=== PATIENT | female | born 1945 | race Caucasian/White ===

== ENCOUNTER 2022-12-07 09:46 | Outpatient (CLI) | payer MEDICARE, SELFPAY ==
--- NOTE | 2022-12-07 10:00 | ECG_ITS ---
Measurements Intervals [place] Rate: 75 P: 66 OH: 188 QRS: 26 QRSD: 97 T: 58 QT: 343 QTc: 385 Interpretive Statements SINUS RHYTHM WITH OCCASIONAL VENTRICULAR PREMATURE COMPLEXES LEFT VENTRICULAR HYPERTROPHY AND ST-T CHANGE [VOLTAGE CRITERIA PLUS ST/T ABNORMALITY] CONSIDER ANTERIOR ISCHEMIA ABNORMAL ECG NO PREVIOUS ECG AVAILABLE FOR COMPARISON Electronically Signed On 12-07-2022 15:29:51 [employer]RARIAN by Az Man M.D.
== END 2022-12-07 09:47 | disposition home or self-care (01) ==
LOC: ANHSURGERY 09:55
PROVIDERS: Anesthesiology; PCP Internal Medicine Geriatric Medicine; Visit Provider Urology
DX: I10 Essential (primary) hypertension (principal); Z01.818 Encounter for other preprocedural examination
CPT/HCPCS: 36415; 80162; 93005

== ENCOUNTER 2022-12-13 00:51 | Day surgery (SDC) | payer MEDICARE, SELFPAY ==
--- NOTE | 2022-12-06 14:43 | PC.NURSE ---
Report to the Outpatient Waiting Room, entrance under the green pavilion located off [facility], at time __0800 on date _12/13/22 . Planned Procedure Time: __1000 . Time changes happen often and if your time is changed the preop area will call you the afternoon before. - You and your visitor will be asked to self-screen and do not enter if you have any COVID symptoms. - Only one visitor is requested with a max of two and NO children visitors are allowed at this time. - The patient visitor may be requested to leave or wait in car when not with patient due to distancing restrictions. - A mask is optional within the hospital at this time. Patients may have clear liquids (water, carbonated beverages, clear teas, apple juice) until 3 hours prior to surgery with a maximum of 20 ounces. - No food from midnight until time of surgery - Infants may have breast milk until 4 hours before surgery, infant formula 6 hours prior to surgery. - Children will be allowed to drink immediately following surgery. If applicable, please bring a bottle or sippy cup to assist with drinking. Juice, water, soda, and popsicles are readily available. For infants on formula, please bring formula the day of surgery. Pacifiers are allowed. Take the following medications with a SIP of water the morning of surgery: __METOPROLOL DO NOT STOP ANY OF YOUR OTHER PRESCRIPTION MEDICATIONS PRIOR TO SURGERY ?EXCEPT THE FOLLOWING Medications to discontinue per physician ___ALL VITAMINS/SUPPLEMENTS 3 DAYS PRE OP LAST DOSE 12/09/22 Please no make-up, nail citizen of [place], hairspray, perfume, deodorant, or body powder the day of surgery. No jewelry (including any body piercings) or valuables the day of surgery, leave them at home. Please take a shower or bath the night before, or the morning of, surgery with an antibacterial soap. Wear comfortable, loose fitting clothing. Children are encouraged to wear pajamas. - Jewelry must be removed prior to entering the operating room. Rings and piercings that are not removed may be cut off. - The hospital will not accept responsibility for valuables. - Please leave all valuables, including medications, at home the day of surgery. If you are going home after surgery, a licensed tractor driver must drive you home. - NO public transportation without another adult if you receive anesthesia. - We recommend that an adult stay with you for 24 hours following discharge. - We also recommend that you do not drive, make important decision, drink alcoholic beverages, or take any drugs that were not prescribed by your health care provider for at least 24 hours after your discharge time Follow any additional instructions given to you from your surgeon. If you or anyone in your household have experienced Covid symptoms in the past week, please notify your surgeon or the nurse liaison at the phone number below for possible testing. Telephone instructions given to __PATIENT and asked if any additional questions and then verbalized understanding. Patient advised to call surgeon office or pre surgery nurse liaison [phone] if any additional questions.
[2022-12-06 14:52] VITALS: BMI 23.6
[2022-12-13] VITALS (10 sets, daily range): BP systolic 102–146; BP diastolic 59–81; PULSE 56–73; RESP 10–18; TEMP 36.2; O2SAT 93–100
--- NOTE | ~2022-12-13 | XR_ITS ---
EXAMINATION: XR retrograde pyelogram BI DATE: 12/13/2022 09:45 INDICATION: Bladder cancer. TECHNIQUE: 149 fluoroscopic images of the abdomen and pelvis were obtained during bilateral retrograd e pyelograms performed by Dr. Garcia. Radiologist was not present for the imaging or procedure. The r ight with procedure note for details of the procedure and contrast injections. The amount of fluorosc opy time used during this procedure was 0.4 minutes. COMPARISON: None. FINDINGS: Normal appearance to the bilateral ureters and renal collecting systems. No suspicious mucosal irregu larities, strictures or filling defects identified. IMPRESSION: 1. Normal bilateral retrograde pyelograms. See procedure note for further detail. Reviewed, dictated and finalized at location A. ING PRESS OPERATOR IMPRESSION: 1. Normal bilateral retrograde pyelograms. See procedure note for further detai lisandra
--- NOTE | 2022-12-13 06:34 | WPDHPUPDATE1 ---
History and Physical Update Update Date/Time: 12/13/22 06:34 History and Physical has been reviewed, including an updated exam of the patient. There are NO changes in the patient's condition. Risks, benefits, and alternatives have been discussed and questions answered. Patient agrees to proceed with procedure.
--- NOTE | 2022-12-13 08:26 | WPDANESEPPF ---
Anes - Initial Pre Proc Eval Procedure: Operation Date: 12/13/22 10:00 Proposed Procedures p Trans Urethral Resection Bladder Tumor - Faahd Garcia MD s Retrograde Pyelogram Gemcitabine Instillation, - Fahad Garcia MD Date/Time: 12/13/22 08:26 Surgeon: Fahad Garcia MD Pre Op Diagnosis: bladder cancer Patient Data Age: 77 Gender: F Height: 1.55 m Weight: 54.4 kg Last Vital Signs Temp 36.2 C L 12/13/22 07:55 Pulse 72 12/13/22 07:55 Resp 18 12/13/22 07:55 BP 102/77 12/13/22 07:55 Pulse Ox 99 12/13/22 07:55 O2 Del Method Room Air 12/13/22 07:55 Allergies Allergy/AdvReac Type Severity Reaction Status Date / Time codeine AdvReac SHORTNESS Verified 12/06/22 14:25 OF BREATH Home Medications Medication Instructions Recorded Confirmed Type acetaminophen 500 mg capsule 500 mg PO Q6H PRN Pain 12/06/22 12/06/22 History atorvastatin 40 mg tablet 40 mg PO QMWF 12/06/22 12/06/22 History calcium carbonate 600 mg-vitamin 1 tablet PO BID 12/06/22 12/06/22 History D3 10 mcg (400 unit) tablet (Calcium 600 + D(3)) digoxin 250 mcg (0.25 mg) tablet 0.25 mg PO HS 12/06/22 12/06/22 History metoprolol succinate 100 mg 50 mg PO QPM 12/06/22 12/06/22 History tablet,extended release 24 hr metoprolol succinate 100 mg 100 mg PO QAM 12/06/22 12/06/22 History tablet,extended release 24 hr vjrlegmr-lxg-pvdv-FA-Ca carb-vit K 1 tablet PO DAILY 12/06/22 12/06/22 History 18 mg iron-400 mcg-500 mg tablet (One-A-Day Womens Formula) nortriptyline 10 mg capsule 40 mg PO HS MIGRAINS 12/06/22 12/06/22 History omeprazole 40 mg capsule,delayed 40 mg PO DAILY 12/06/22 12/06/22 History release sacubitril 49 mg-valsartan 51 mg 1 tablet PO BID 12/06/22 12/06/22 History tablet (Entresto) Patient hx anesthesia problems: none Family hx anesthesia problems: none Results Review: All pre-operative results and documents have been reviewed as part of the pre-operative evaluation. [facility] Past Medical History Medical History (Updated 12/13/22 @ 08:30 by Lionel Mccoy MD) Bladder cancer CAD (coronary artery disease) HTN (hypertension) Hx of myocardial infarction Hyperlipidemia Surgical History Surgical History (Updated 12/13/22 @ 08:29 by Lionel Mccoy MD) H/O: hysterectomy History of cholecystectomy Social History Social History Years smoked: 15 Smoking status: Former smoker Tobacco type: cigarettes Smoking end date: 10/21/00 Living arrangements: alone Spiritual care concerns: No Anes - Eval Final PreProcedure Day of Procedure 12/13/22 08:26 Patient weight: normal Heart: regular rate and rhythm Lungs: clear to auscultation Airway: Mallampati scale class II Neurological: alert and oriented Last oral intake: >/= 8 hours ASA classification: III Emergent: no Anesthetic plan: proceed Anesthesia type and monitoring: general LMA and standard monitoring Results Review: All pre-operative results and documents have been reviewed as part of the pre-operative evaluation. Informed Consent: The patient's anesthetic plan and its attendant risks and benefits were discussed with the patient/family/POA. Questions were solicited and answers provided to the satisfaction of the patient/family/POA.
[2022-12-13] MEDS: LACTATED RINGERS 1,000 ML 30 ML IV CONT ×2 (08:46→12:27)
--- NOTE | 2022-12-13 09:54 | W.PM.PROC2 ---
Procedure Note - Detailed Date of Procedure 12/13/22 Pre-op Diagnosis Bladder cancer Post-op Diagnosis Same Procedure Performed Cystoscopy, bilateral retrograde pyelography, TURBT ( medium, 4 cm) Surgeon Fahad Garcia MD Anesthesia General Description of Procedure The patient was brought to the operative suite where she is prepped and draped in a routine sterile fashion while in the dorsal lithotomy position. This is done after the uneventful administration of general LMA anesthetic. 1st placed today 21 F rigid cystoscope in her bladder. Bladder neck urethra endoscopically normal. She has a papillary 4 cm neoplasm just above her left ureteral orifice in the left posterior lateral bladder wall. An 8 F bulb-tipped catheter was used to obtain bilateral retrograde pyelograms. Her collecting system and ureters are without filling defects, obstruction or other sign of pathology. I then placed a 24F resectoscope sheath was placed in the bladder and the bladder is circumferentially inspected carefully. 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 This area is resected in its entirety with an attempt made to include detrusor muscle for pathological evaluation of invasion. The base and periphery of this resected side is cauterized with a loop electrode. The bladder is emptied and the resectoscope was removed. The patient is taken to the recovery room having tolerated this procedure well. this was all done with care to avoid any injury to the ureteral orifices. Estimated Blood Loss 5 Pathology Yes Complications No immediate complications Condition Stable
--- NOTE | 2022-12-13 09:58 | W.PM.PROC2 ---
Procedure Note - Detailed Date of Procedure 12/13/22 Pre-op Diagnosis Bladder cancer Post-op Diagnosis Same Procedure Performed Gemcitabine installation into the bladder Surgeon Fahad Garcia MD Anesthesia None Description of Procedure With the patient in the supine position, a 16F Man catheter is placed using sterile technique. Using a protective facemask, gown and double layer of gloves Gemcitabine 2gm in 100cc saline is administered through the catheter/into the bladder. The catheter is then plugged. Patient was instructed to lie supine x20min, then to roll both the left and right x20 min. each. Total dwell time will be 60 min., after which the bladder will be drained and catheter removed. Estimated Blood Loss 5 Drains No Complications No immediate complications
[2022-12-13] MEDS: SODIUM CHLORIDE 0.9% IV 23.7 ML, GEMCITABINE HCL 1,000 MG BLADDER ×2 (10:12)
[2022-12-13] MEDS: fentaNYL CITRATE INJ (*CRX) 100 MCG/2 ML VIAL 25 MCG IV PUSH ×4 (10:20→10:55)
--- NOTE | 2022-12-13 11:06 | SUR.PHASEI ---
1015 - pt rotated every 20 minutes, from back to left side to right side. pt edith well.
[2022-12-13] MEDS: SODIUM CHLORIDE 0.9% IV 50 ML BAG 150 ML IRRIGATION (11:15)
--- NOTE | 2022-12-13 13:39 | SUR.PHASEII ---
1230 PATIENT VOIDED AND FLUSHED TWICE.
== END 2022-12-13 12:55 | disposition home or self-care (01) ==
PROVIDERS: PCP Internal Medicine Geriatric Medicine; Visit Provider Urology
PROC: 0TBB8ZZ Excision of Bladder, Via Natural or Artificial Opening Endoscopic (ICD-10-PCS; CPT 52204; principal; 2022-12-13 10:00)
PROC: (CPT 52352; 2022-12-13 10:00)
DX: C67.2 Malignant neoplasm of lateral wall of bladder (principal); I10 Essential (primary) hypertension; I25.10 Atherosclerotic heart disease of native coronary artery without angina pectoris; I25.2 Old myocardial infarction; E78.5 Hyperlipidemia, unspecified; Z87.891 Personal history of nicotine dependence
CPT/HCPCS: 52204; 51720; 74420; 88305; C1758; C1769; J0131; J2405; J2704; J3010; J7120; J9201